=== PATIENT | female | born 2000 | race African-American/Black ===

== ENCOUNTER 2022-04-04 07:35 | Emergency (ER) | payer SELFPAY ==
--- NOTE | 2022-04-04 07:49 | EDPHYS ---
Physician Documentation [facility] Name: Anna Scott Age: 21 yrs Sex: Female : 2000 Arrival Date: 04/04/2022 Time: 07:38 Bed 14 Private MD: ED Physician Gino Romero HPI: 04/04 07:48 This 21 yrs old Black Female presents to ER via Unassigned with complaints of Ear Pain. kb 07:48 The patient presents with pain, moderate. The complaints affect the right ear. Onset: kb The symptoms/episode began/occurred last night. Modifying factors: The symptoms are alleviated by nothing, the symptoms are aggravated by nothing. Associated signs and symptoms: The patient has no apparent associated signs or symptoms. Severity of symptoms: At their worst the symptoms were moderate in the emergency department the symptoms are unchanged. The patient has not experienced similar symptoms in the past. The patient has not recently seen a physician. Historical: - Allergies: 07:49 No Known Allergies; ss - Home Meds: 07:49 metformin 750 mg Oral Tb24 1 tab once daily [Active]; ss - PMHx: 07:49 Diabetes mellitus; ss - PSHx: 07:49 None; ss - Immunization history:: Adult Immunizations up to date. - Social history:: Smoking status: Patient denies any tobacco usage or history of. ROS: 07:47 Constitutional: Negative for fever, chills, and weight loss. kb 07:47 ENT: Positive for ear pain. 07:47 All other systems are negative. Exam: 07:47 Constitutional: This is a well developed, well nourished patient who is awake, alert, kb and in no acute distress. Head/Face: Normocephalic, atraumatic. Cardiovascular: Regular rate and rhythm with a normal S1 and S2. No gallops, murmurs, or rubs. No pulse deficits. Respiratory: Respirations even and unlabored. No increased work of breathing. Talking in full sentences Skin: Warm, dry with normal turgor. Normal color. MS/ Extremity: Pulses equal, no cyanosis. Neurovascular intact. Full, normal range of motion. Neuro: Awake and alert, GCS 15, oriented to person, place, time, and situation. Moves all extremities. Normal gait. Psych: Awake, alert, with orientation to person, place and time. Behavior, mood, and affect are within normal limits. 07:47 ENT: External ear(s): are unremarkable, Ear canal(s): are normal, TM's: bulging, on the right, erythema, that is marked, on the right. Vital Signs: 07:47 BP 138 / 100; Pulse 84; Resp 16; Temp 97.1(A); Pulse Ox 100% on R/A; Weight 83.01 kg; ss Pain 8/10; MDM: 07:44 Patient medically screened. kb 07:47 Data reviewed: vital signs, nurses notes. Data interpreted: Pulse oximetry: on room air kb is 100 %. Interpretation: normal. Counseling: I had a detailed discussion with the patient and/or guardian regarding: the historical points, exam findings, and any diagnostic results supporting the discharge/admit diagnosis, the need for outpatient follow up, a family practitioner, to return to the emergency department if symptoms worsen or persist or if there are any questions or concerns that arise at home. Administered Medications: 08:02 Drug: Rocephin (cefTRIAXone) 1 grams Route: IM; Site: right gluteus; vg1 08:13 Follow up: Response: No adverse reaction vg1 Disposition: 15:15 Co-signature as Attending Physician, Gino SILVER was immediately available on-site ms3 in the Emergency Department for consultation in the care of the patient. Disposition Summary: 04/04/22 07:48 Discharge Ordered Location: Home kb Condition: Stable kb Diagnosis - Otitis media, unspecified, right ear kb Followup: kb - With: Emergency Department - When: As needed - Reason: Worsening of condition Followup: kb - With: Private Physician - When: 2 - 3 days - Reason: Recheck today's complaints, Continuance of care, Re-evaluation by your physician Discharge Instructions: - Discharge Summary Sheet kb - Otitis Media, Adult, [id number] kb Forms: - Medication Reconciliation Form kb - Thank You Letter kb - Antibiotic Education kb - Prescription Opioid Use kb Prescriptions: - Amoxicillin 875 mg Oral Tablet - take 1 tablet by ORAL route every 12 hours for 10 days; 20 tablet; Refills: 0, kb Product Selection Permitted Signatures: Anastasiya Lobato FNP-C FNP-Ckb Smirch, Shelby, RN RN Mery Luna RN RN vg1 Romero, Gino, DO DO ms3
[2022-04-04] MEDS ORDERED: CEFTRIAXONE 1000 MG/VIAL ONE (07:53)
[2022-04-04] MEDS ORDERED: LIDOCAINE 1% MPF 2 ML AMPULE ONE (07:53)
--- NOTE | 2022-04-04 08:14 | ER ---
Nurse's Notes [facility] Name: Anna Scott Age: 21 yrs Sex: Female : 2000 Arrival Date: 04/04/2022 Time: 07:38 Bed 14 Private MD: Diagnosis: Otitis media, unspecified, right ear Presentation: 04/04 07:47 Chief complaint: Patient states: R ear pain that began last night. Denies fever. ss Coronavirus screen: Client denies travel out of the [place] in the last 14 days. Ebola Screen: Patient denies exposure to infectious person. Patient denies travel to an Ebola-affected area in the 21 days before illness onset. Initial Sepsis Screen: Does the patient meet any 2 criteria? No. Patient's initial sepsis screen is negative. Does the patient have a suspected source of infection? No. Patient's initial sepsis screen is negative. Risk Assessment: Do you want to hurt yourself or someone else? Patient reports no desire to harm self or others. Onset of symptoms was April 03, 2022. 07:47 Method Of Arrival: Ambulatory 07:47 Acuity: KATHLEEN 4 ss Historical: - Allergies: 07:49 No Known Allergies; ss - Home Meds: 07:49 metformin 750 mg Oral Tb24 1 tab once daily [Active]; ss - PMHx: 07:49 Diabetes mellitus; ss - PSHx: 07:49 None; ss - Immunization history:: Adult Immunizations up to date. - Social history:: Smoking status: Patient denies any tobacco usage or history of. Screenin:04 Abuse screen: Denies threats or abuse. Nutritional screening: No deficits noted. vg1 Tuberculosis screening: No symptoms or risk factors identified. Fall Risk None identified. Assessment: 07:48 General: Appears in no apparent distress. uncomfortable, Behavior is calm, cooperative. vg1 Pain: Complains of pain in right ear Pain currently is 8 out of 10 on a pain scale. Pain began 1 day ago. Neuro: Level of Consciousness is awake, alert, obeys commands, Oriented to person, place, time, situation. Respiratory: Airway is patent Respiratory effort is even, unlabored. GI: No signs and/or symptoms were reported involving the gastrointestinal system. EENT: Tympanic membrane reddened on right ear. Vital Signs: 07:47 BP 138 / 100; Pulse 84; Resp 16; Temp 97.1(A); Pulse Ox 100% on R/A; Weight 83.01 kg; ss Pain 8/10; ED Course: 07:38 Patient arrived in ED. mr 07:43 Anastasiya Lobato FNP-C is [facility]. kb 07:43 Gino Romero DO is Attending Physician. kb 07:48 Mery Nelson, RN is Primary Nurse. vg1 07:49 Triage completed. ss 07:49 Arm band placed on right wrist. ss 08:04 Patient has correct armband on for positive identification. Bed in low position. Call vg1 light in reach. Side rails up X 1. 08:04 No provider procedures requiring assistance completed. Patient did not have IV access vg1 during this emergency room visit. Administered Medications: 08:02 Drug: Rocephin (cefTRIAXone) 1 grams Route: IM; Site: right gluteus; vg1 08:13 Follow up: Response: No adverse reaction vg1 Medication: 08:04 VIS not applicable for this client. vg1 Outcome: 07:48 Discharge ordered by MD. kb 08:04 Discharged to home ambulatory. vg1 08:04 Condition: good 08:04 Discharge instructions given to patient, Instructed on discharge instructions, follow up and referral plans. medication usage, Demonstrated understanding of instructions, follow-up care, medications, Prescriptions given X 1. 08:13 Patient left the ED. vg1 Signatures: Anastasiya Lobato FNP-C FNP-Vincent Tasneem Haines Betty Singh, JAMES RN Mery Luna, RN RN vg1
[2022-04-04 08:24] VITALS: BP 138/100; TEMP 97.1; O2SAT 100
== END 2022-04-04 08:13 | disposition home or self-care (01) ==
LOC: ER 07:35
DX: H66.91 Otitis media, unspecified, right ear (principal); E11.9 Type 2 diabetes mellitus without complications
CPT/HCPCS: 96372; 99283

== ENCOUNTER 2022-11-03 15:00 | Emergency (ER) | payer SELFPAY ==
--- OUTSIDE RECORDS SUMMARY | 2022-11-03 15:04 | XMS REPORT | Continuity of Care Document ---
:2000 Author Organization [facility] t Address [address] [place] [address] Care Team Providers Name Role Phone VANDANA BECERRA Primary Care Physician Unavailable Jake JAMA Attending Clinician Unavailable Jake Lombardi Attending Clinician VANDANA BECERRA Attending Clinician Unavailable LEOLA SALINAS Attending Clinician Unavailable David Gunterya S Attending Clinician Ced Álvarez MD Attending Clinician CED ÁLVAREZ Attending Clinician Unavailable BRENDA GERARDO Attending Clinician Unavailable Vandana Becerra MD Attending Clinician CHASE VELASCO Attending Clinician Unavailable Lab, [facility] Attending Clinician Unavailable JONA PHAN Attending Clinician Unavailable Jona Delgado Attending Clinician Valarie Koo MD Attending Clinician VALARIE KOO Attending Clinician Unavailable Doctor Unassigned, [place] Attending Clinician Unavailable PERRY CRENSHAW Attending Clinician Unavailable Rosemary Butler Attending Clinician WINSTON FERRER Attending Clinician Unavailable Nurse, [facility] Urgent Attending Clinician Unavailable Winston Ferrer MD Attending Clinician Perry Carter Attending Clinician Tristin Campos DO Attending Clinician LUAN ARMSTRONG Attending Clinician Unavailable Luan Armstrong APN Attending Clinician MEHRAN FLORES Attending Clinician Unavailable Jordan MULTANIP, Kate Cid Attending Clinician AMALIA CHAVEZ Attending Clinician Unavailable ALEJANDRO MCCALL Attending Clinician Unavailable Theodore WALLER, Jennifer Attending Clinician JENNIFER JAIMES Attending Clinician Unavailable Sunil RAMIREZ, Rukhsana Attending Clinician Unavailable Jazzy GIBBONS, Ange Juarez Attending Clinician ROSEANNE RODRIGUEZ Attending Clinician Unavailable Eliezer RAMIREZ, Betty Rubio Attending Clinician Unavailable Nurse, Pcp [facility] Attending Clinician Unavailable Leonid GIBBONS, Joe Attending Clinician JOE CISNEROS Attending Clinician Unavailable JAMEY RIVERA Attending Clinician Unavailable Kellie Vo RN Attending Clinician Unavailable Pcp, Patient Does Not Have A Attending Clinician [phone] Lachelle Guadarrama PA-C Attending Clinician LACHELLE GUADARRAMA Attending Clinician Unavailable Jake JAMA Admitting Clinician Unavailable JAKE HANSON Admitting Clinician Unavailable JONA PHAN Admitting Clinician Unavailable VALARIE KOO Admitting Clinician Unavailable LUAN ARMSTRONG Admitting Clinician Unavailable Payers Payer Name Policy Type Policy Number Effective Date Expiration Date S ource MEDICAID PENDING PENDING 2020 00:00:00 [facility] [id number] 2021 00:00:00 Problems Condition Condition Condition Status Onset Resolution Last Treating Co mments Source Name Details Category Date Date Treatment Clinician Date Rubella Rubella Disease Active Univers non-immune non-immune 02-06 it y of status, status, 00:00: [place] antepartum antepartum 00 Me dical Branch Maternal Maternal Disease Active Unive rs varicella, varicella, 02-06 it y of [place]immune [place] History of History of Disease Active U nivers gestationa gestationa 8-23 it y of l diabetes l diabetes [place] in prior 00 Medica l , , Br anch currently currently in first in first trimester trimester Family Family Disease Active Univers history of history of 01-01 it y of diabetes diabetes 00:00: [place] mellitus mellitus 00 Medica l Branch History of History of Disease Active U nivers gestationa gestationa 8 it y of l l 00:00: [place] hypertensi hypertensi 00 Me dical on on Branch Hearing Hearing Disease Active Overview: Univ ers loss loss 4-30 Formattin ity of 00:00: g of this [place] 00 note Medical might be Branch different from the original. ICD10 Diagnosis Term [employer] Utility Allergies, Adverse Reactions, Alerts Allergy Allergy Status Severity Reaction(s) Onset Inactive Treating Comm ents Source Name Type Date Date Clinician NO KNOWN Drug Active Univers ALLERGIE Class ity of S [facility] Social History Social Habit Start Date Stop Date Quantity Comments Source History SDOH University o f Alcohol Frequency [place] M edical [facility] History SDOH University o f Alcohol Std [place] [facility] Drinks Branch History SDFL University o f Alcohol Binge [place] [facility] Branch Exposure to 2022-01-15 2022-01-25 Unable to assess Univers ity of SARS-CoV-2 00:00:00 08:49:00 [facility] (event) Branch Alcohol intake 2022-01-25 2022-01-25 Current drinker Unive rsity of 00:00:00 00:00:00 of alcohol [place] [facility] (finding) [place] Alcohol Comment 2020-08-01 2020-08-01 socially Universit y of 00:00:00 00:00:00 [facility] Tobacco use and 2017-01-17 2017-01-17 Smokeless tobacco Un iversity of exposure 00:00:00 00:00:00 non-user [facility] Sex Assigned At [birth year] Universit y of 00:00:00 00:00:00 [facility] Smoking Status Start Date Stop Date Source Never smoked tobacco [facility] Medications Ordered Filled Start Stop Current Ordering Indication Dosage Frequency Signature Comments Components Source Medication Medication Date Date Medication? Clinician (SIG) Name Name ibuprofen 600mg 600 mg, Uni vers (IBU) 9-16 09-16 Oral, ity of tablet 600 14:45: 14:52 ONCE, 1 Da as mg 00 :00 dose, On Medical Fri Branch 01/25/22 at 0945, ROSHAN maalox:diph 2021- No 15mL 15 mL, Uni vers enhydrAMINE 5 05-07 Oral, ity of :lidocaine 03:45: 03:19 ONCE, 1 Da as 2 % viscous 00 :00 dose, On Medi ion 1:1:1 09/14/21 Branch ([facility] at 2245, [facility] Routine oral suspension 15 mL pantoprazol 0 Yes [id number] 40mg Take 1 Univers e 5-06 tablet by ity of (PROTONIX) 00:00: mouth [place] 40 mg EC 00 daily. Medical tablet Branch dicyclomine 0 Yes [id number] 20mg Take 1 Univers 20 mg 5-06 tablet by ity of tablet 00:00: mouth [place] 00 every 6 Medical (six) Branch hours as needed for Abdominal pain. ondansetron 0 Yes [id number] 4mg Take 1 Univers (ZOFRAN) 4 5-06 tablet by ity of mg tablet 00:00: mouth [place] 00 every 8 Medical (eight) Branch hours as needed for Nausea and Vomiting (N/V). pantoprazol 0 Yes [id number] 40mg Take 1 Univers e 5-06 tablet by ity of (PROTONIX) 00:00: mouth [place] 40 mg EC 00 daily. Medical tablet Branch dicyclomine 0 Yes [id number] 20mg Take 1 Univers 20 mg 5-06 tablet by ity of tablet 00:00: mouth [place] 00 every 6 Medical (six) Branch hours as needed for Abdominal pain. ondansetron 2021-0 Yes [id number] 4mg Take 1 Univers (ZOFRAN) 4 5-06 tablet by ity of mg tablet 00:00: mouth [place] 00 every 8 Medical (eight) Branch hours as needed for Nausea and Vomiting (N/V). clindamycin 0 2021- No [id number] 300mg Take 1 Univers 300 mg 4-21 -29 capsule by ity of capsule 00:00: 04:59 mouth 2 [place] 00 :00 (two) Medical times Branch daily for 7 days. SITagliptin 2021-0 Yes [id number] 100mg Take 1 Univers 100 mg 4-13 tablet by ity of tablet 00:00: mouth [place] 00 daily. Medical Branch SITagliptin 2021-0 Yes [id number] 100mg Take 1 Univers 100 mg 4-13 tablet by ity of tablet 00:00: mouth [place] 00 daily. Medical Branch SITagliptin 2021-0 Yes [id number] 100mg Take 1 Univers 100 mg 4-13 tablet by ity of tablet 00:00: mouth [place] 00 daily. Medical Branch metformin 2021-0 Yes [id number] 2000mg Take 4 Univers ER 500 mg 4-06 tablets by ity of 24 hr 00:00: mouth [place] tablet 00 daily with Medical breakfast. Branch metformin 2021-0 Yes [id number] 2000mg Take 4 Univers ER 500 mg 4-06 tablets by ity of 24 hr 00:00: mouth [place] tablet 00 daily with Medical breakfast. Branch metformin 2021- Yes [id number] 2000mg Take 4 Univers ER 500 mg 4-06 tablets by ity of 24 hr 00:00: mouth [place] tablet 00 daily with Medical breakfast. Branch Immunizations Ordered Filled Immunization Date Status Comments [facility] e Immunization Name Name HPV9 2018-11-30 Completed University of 00:00:00 [facility] HPV9 2018-11-30 Completed University of 00:00:00 [facility] HPV9 2018-11-30 Completed University of 00:00:00 [facility] HPV9 2018-08-21 Completed University of 00:00:00 [facility] HPV9 2018-08-21 Completed University of 00:00:00 [facility] HPV9 2018-08-21 Completed University of 00:00:00 [facility] HPV9 2017-09-05 Completed University of 00:00:00 [facility] HPV9 2017-09-05 Completed University of 00:00:00 [facility] HPV9 2017-09-05 Completed University of 00:00:00 [facility] TDAP 2017-07-02 Completed University of 00:00:00 [facility] TDAP 2017-07-02 Completed University of 00:00:00 [facility] TDAP 2017-07-02 Completed University of 00:00:00 [facility] Influenza Virus 2013-02-08 Completed Universit y of Vaccine Nasal 00:00:00 [facility] Influenza Virus 2013-02-08 Completed Universit y of Vaccine Nasal 00:00:00 [facility] [place] Influenza Virus 2013-02-08 Completed Universit y of Vaccine Nasal 00:00:00 [facility] HIB 4 Dose Schedule 1999-10-15 Completed Unive rsity of 00:00:00 [facility] HIB 4 Dose Schedule 1999-10-15 Completed Unive rsity of 00:00:00 [facility] MMR 1999-08-10 Completed University of 00:00:00 [facility] Varicella 1999-08-10 Completed University of (varivax)(chicken 00:00:00 [place] M edical pox) Branch DTAP 1999-08-10 Completed University of 00:00:00 [facility] HIB 4 Dose Schedule 1999-08-10 Completed Unive rsity of 00:00:00 [facility] Polio (IPV/OPV) 1999-08-10 Completed Universit y of 00:00:00 [facility] MMR 1999-08-10 Completed University of 00:00:00 [facility] Varicella 1999-08-10 Completed University of (varivax)(chicken 00:00:00 [place] [facility]ical pox) Branch DTAP 1999-08-10 Completed University of 00:00:00 [facility] HIB 4 Dose Schedule 1999-08-10 Completed Unive rsity of 00:00:00 [facility] Polio (IPV/OPV) 1999-08-10 Completed Universit y of 00:00:00 [facility] Hep B, Adol or Pedi 1999-05-30 Completed Unive rsity of Dosage 00:00:00 [facility] DTAP 1999-05-30 Completed University of 00:00:00 [facility] HIB 4 Dose Schedule 1999-05-30 Completed Unive rsity of 00:00:00 [facility] Polio (IPV/OPV) 1999-05-30 Completed Universit y of 00:00:00 [facility] Hep B, Adol or Pedi 1999-05-30 Completed Unive rsity of Dosage 00:00:00 [facility] DTAP 1999-05-30 Completed University of 00:00:00 [facility] HIB 4 Dose Schedule 1999-05-30 Completed Unive rsity of 00:00:00 [facility] Polio (IPV/OPV) 1999-05-30 Completed Universit y of 00:00:00 [facility] DTAP 1998 Completed University of 00:00:00 [place] [facility] HIB 4 Dose Schedule 1998 Completed Unive rsity of 00:00:00 [place] [facility] Polio (IPV/OPV) 1998 Completed Universit y of 00:00:00 [place] [facility] DTAP 1998 Completed University of 00:00:00 [place] [facility] HIB 4 Dose Schedule 1998 Completed Unive rsity of 00:00:00 [place] [facility] Polio (IPV/OPV) 1998 Completed Universit y of 00:00:00 [place] [facility] DTAP 1998 Completed University of 00:00:00 [facility] Branch HIB 4 Dose Schedule 1998 Completed Unive rsity of 00:00:00 [facility] Polio (IPV/OPV) 1998 Completed Universit y of 00:00:00 [facility] Hep B, Adol or Pedi 1998 Completed Unive rsity of Dosage 00:00:00 [facility] DTAP 1998 Completed University of 00:00:00 [place] [facility] HIB 4 Dose Schedule 1998 Completed Unive rsity of 00:00:00 [facility] Polio (IPV/OPV) 1998 Completed Universit y of 00:00:00 [place] [facility] Hep B, Adol or Pedi 1998 Completed Unive rsity of Dosage 00:00:00 [facility] DTAP 1998 Completed University of 00:00:00 [facility] HIB 4 Dose Schedule 1998 Completed Unive rsity of 00:00:00 [place] [facility] Polio (IPV/OPV) 1998 Completed Universit y of 00:00:00 [place] [facility] Hep B, Adol or Pedi 1998 Completed Unive rsity of Dosage 00:00:00 [place] [facility] Hep B, Adol or Pedi 1998 Completed Unive rsity of Dosage 00:00:00 [place] [facility] Hep B, Adol or Pedi 1998 Completed Unive rsity of Dosage 00:00:00 [place] [facility] Hep B, Adol or Pedi 1998 Completed Unive rsity of Dosage 00:00:00 [place] [facility] Hep B, Adol or Pedi 1998 Completed Unive rsity of Dosage 00:00:00 [facility] Vital Signs Vital Name Observation Time Observation Value Comments Source Systolic blood 2022-01-25 13:50:07 135 mm[Hg] Univer sity of pressure [facility] Diastolic blood 2022-01-25 13:50:07 68 mm[Hg] Unive rsity of pressure [facility] Heart rate 2022-01-25 13:50:07 98 /min Universi ty [facility] Body temperature 2022-01-25 13:50:07 36.11 Aparna [facility] ersity of [facility] Respiratory rate 2022-01-25 13:50:07 22 /min Univ ersity of [facility] Body height 2022-01-25 13:38:00 154.9 cm Universi ty of [facility] Body weight 2022-01-25 13:38:00 88.86 kg Universi ty of [facility] BMI 2022-01-25 13:38:00 37.01 kg/m2 Universi ty [facility] Oxygen saturation in 2022-01-25 13:38:00 100 /min University of Arterial blood by [facility] Pulse oximetry Branch Systolic blood 2021-09-15 05:11:00 112 mm[Hg] Univer sity of [facility] Diastolic blood 2021-09-15 05:11:00 85 mm[Hg] Unive rsity of pressure [facility] Heart rate 2021-09-15 05:11:00 85 /min Universi ty [facility] Respiratory rate 2021-09-15 05:11:00 16 /min Univ ersity [facility] Oxygen saturation in 2021-09-15 05:11:00 95 /min University of Arterial blood by [facility] Pulse oximetry Branch Body temperature 2021-09-15 02:24:32 36.78 Aparna [facility] ersity of [facility] Body height 2021-09-15 01:43:00 154.9 cm Universi ty of [place] [facility] [place] Body weight 2021-09-15 01:43:00 88.905 kg Universi ty of [place] [facility] [place] BMI 2021-09-15 01:43:00 37.03 kg/m2 Universi ty of [facility] Procedures Procedure Date / Time Performing Clinician Source Performed XR HAND 3+ VW LEFT 2022-01-25 14:13:53 Jake Jama [facility] CONSENT/REFUSAL FOR 2022-01-25 13:37:30 [facility] XR CHEST 1 VW 2021-09-15 02:56:12 Jake Hanson [facility] o [facility] LIPASE 2021-09-15 02:24:00 Ced Álvarez [facility] TROPONIN I 2021-09-15 02:24:00 Ced Álvarez [facility] COMP. METABOLIC PANEL 2021-09-15 02:24:00 Ced Álvarez [facility] ([id number]) [facility] CBC WITH DIFF 2021-09-15 02:24:00 Ced Álvarez [facility] PROTHROMBIN TIME / INR 2021-09-15 02:24:00 Ced Álvarez [facility] ACTIVATED PARTIAL 2021-09-15 02:24:00 Ced Álvarez [facility] THRMPLAS [facility] NOTICE OF PRIVACY 2021-09-15 01:27:45 Doctor Unassigned, No [facility] PRACTICES Name [facility] CONSENT/REFUSAL FOR 2021-09-15 01:25:09 [facility] Name [facility] Encounters Start End Encounter Admission Attending Care Care Encounter Source Date/Time Date/Time Type Type Clinicians Facility Department ID 2021-03-[address] [facility] [id number] Univers 08:52:12 ity of [facility] 2021-03-[address] [facility] [id number] Univers 22:13:37 ity of [facility] 2021-03-[address] [facility] [id number] Univers 20:27:27 ity [facility] 2022-01-25 2022-01-25 Emergency X Jake JAMA [facility] ERT [id number] Univers 08:40:00 10:02:00 ity [facility] 2022-01-25 2022-01-25 Emergency Jake Jama [facility] [id number] Univers 08:40:00 10:02:00 [facility] [id number] i ty of [place] [id number] [facility] [phone] [place] [address] Branch 2021-12-12 2021-12-12 Outpatient R [facility] [id number] Univers 10:00:00 10:00:00 VANDANA [facility] 2021-12-04 2021-12-04 Outpatient R [facility] [id number] Univers 10:30:00 10:30:00 LEOLA [facility] 2021-09-14 2021-09-15 Emergency Jake Hanson [facility] [id number] Univers 20:45:00 00:18:00 Ced ÁlvarezNIKO [id number] ity [facility] [id number] [facility] [id number] [address] 2021-09-14 2021-09-15 Emergency X AVRIL [facility] ERT [id number] Univers 20:45:00 00:18:00 CED [facility] 2021-09-05 2021-09-05 Outpatient R [facility] [id number] Univers 13:30:00 13:30:00 BRENDA ronny [facility] 2021-09-05 2021-09-05 Outpatient R [facility] [id number] Univers 13:30:00 13:30:00 BRENDA [facility] 2021-08-30 2021-08-30 [facility] [id number] Univers 00:00:00 00:00:00 Secure [facility] [id number] ity [facility] [id number] [facility] [phone] [facility] PRIMARY & 365 Branch SPECIALTY CARE 2021-08-22 2021-08-22 Outpatient [facility] [id number] Univers 11:20:00 11:20:00 CHASE [facility] 2021-08-22 2021-08-[address] [facility] [id number] Univers 11:20:00 11:20:00 [facility] 2021-08-15 2021-08-15 News Editor Lab, [facility] [id number] Univers 15:15:00 15:30:00 Visit Hernan [place] [id number] [facility] [id number] [facility] [phone] [facility] PRIMARY & 357 Branch SPECIALTY CARE 2021-08-15 2021-08-[address] [facility] [id number] Univers 13:40:00 15:03:09 [facility] 2021-08-15 2021-08-15 Office Hernan [facility] [id number] Univers 13:40:00 15:03:09 Visit [place] [id number] [facility] [id number] [facility] [id number] [facility] PRIMARY & 365 Branch SPECIALTY CARE 2021-08-15 2021-08-[address] [facility] [id number] Univers 13:40:00 15:03:09 [facility] 2021-08-15 2021-08-[address] [facility] [id number] Univers 13:40:00 15:03:09 [facility] 2021-08-15 2021-08-[address] [facility] [id number] Univers 11:00:00 11:00:00 [facility] 2021-08-01 2021-08-[address] [facility] [id number] Univers 09:20:00 09:20:00 [facility] 2021-08-01 2021-08-[address] [facility] [id number] Univers 09:20:00 09:20:00 VANDANA jefferson [facility] 2021-07-15 2021-07-15 Refethan Hernan [facility] [id number] Univers 00:00:00 00:00:00 Vandana HEALTH [id number] it y of [place] [id number] [facility] [place] [phone] [facility] PRIMARY & 365 Branch SPECIALTY CARE 2021-07-08 2021-07-08 [facility] [id number] Univers 00:00:00 00:00:00 Vnadana HEALTH [id number] it y of [place] [id number] [facility] [phone] [facility] PRIMARY & 365 Branch SPECIALTY CARE 2021 2021 Emergency X JONA PHAN [facility] ERT [id number] Univers 12:43:00 18:40:00 ity of [facility] 2021 2021 Emergency Jona Phan [facility] [id number] Univers 12:43:00 18:40:00 T HEALTH [id number] it y of [facility] [id number] [facility] [id number] [address] ([facility]) 2021-06-23 2021-06-23 Patient Hernan [facility] [id number] Univers 00:00:00 00:00:00 Secure Msg Vandana HEALTH [id number] ity of [place] [id number] [facility] [place] [phone] [facility] PRIMARY & [facility] Branch SPECIALTY CARE 2021-06-21 2021-06-[address] [facility] [id number] Univers 13:00:00 13:00:00 BRENDA jefferson [facility] 2021-06-21 2021-06-[address] [facility] [id number] Univers 13:00:00 13:00:00 BRENDA jefferson [facility] 2021-06-13 2021-06-13 [facility] JOSE [id number] Univers 08:31:00 23:59:00 Encounter Valarie Chau [id number] ity of [place] [id number] Da as [id number] [address] 2021-06-13 2021-06-13 Outpatient Ravinder KOO [facility] ACO [id number] Univers 00:00:00 23:59:00 VALAREI ity [facility] 2021-06-13 2021-06-13 News Editor Lab, [facility] [id number] Univers 15:30:00 15:45:00 Visit Hernan [facility] [id number] ity of [place] [id number] [facility] [id number] [facility] PRIMARY & 357 Branch SPECIALTY CARE 2021-06-13 2021-06-13 Office Hernan [facility] [id number] Univers 14:40:00 15:00:00 Visit [facility] [id number] it y of [place] [id number] [place] [address] [id number] [facility] PRIMARY & 365 Branch SPECIALTY CARE 2021-06-13 2021-06-13 Outpatient Ravinder BECERRA [facility] AC [id number] Univers 14:40:00 14:40:00 [facility] 2021-06-13 2021-06-13 Outpatient Ravinder BECERRA [facility] ACO [id number] Univers 14:40:00 14:40:00 [facility] 2021-06-13 2021-06-13 [facility] LILLIAN KooMahendra [id number] Univers 08:28:00 08:30:00 Encounter Valarie Chau [id number] ity of [facility] [id number] Da as [id number] [address] 2021-06-13 2021-06-13 Outpatient Ravinder KOO [facility] ACO [id number] Univers 00:00:00 08:30:00 VALARIE jefferson of [facility] 2021-06-13 2021-06-13 Orders Doctor MAUREEN [id number] Univers 00:00:00 00:00:00 Only Unassigned, MIRANDA [id number] ity of [facility] [id number] Da as [phone] [facility] [address] 2021-04-10 2021-04-10 [facility] [id number] Univers 10:15:00 10:15:00 PERRY jefferson [facility] 2020-11-25 2020-11-25 Emergency Caro, TRAUMA [id number] Univers 14:06:00 15:04:00 Rosemary WILLIS 350.1.13.10 [place] [phone] [facility] [address] 2020-08-19 2020-08-[address] [facility] [id number] Univers 12:45:00 12:45:00 WINSTON jefferson [facility] 2020-08-19 2020-08-19 Laboratory Nurse, Gal Adult Urgent [facility] 1.2.840.114 [id number] Univers 12:29:43 12:44:43 Only Winston Ferrer [facility] 350.1.13.10 ity of Pediatric 4.2.7.2.686 [facility] [phone] [facility] [address] 2020-08-15 2020-08-15 Outpatient [facility] [id number] Univers 09:15:00 09:15:00 PERRY jefferson of [facility] 2020-08-03 2020-08-03 Thiago Crenshaw [facility] 1.2.840.114 [id number] Univers 00:00:00 00:00:00 Management Perry [employer] SU[employer] ASSOCIATE 350.1.13.10 ity of REGIONAL 4.2.7.2.686 [place] as MATERNAL [phone] Med ical & CHILD [address] [place] [address] [facility] 2020-08-02 2020-08-02 Luis Crenshaw [facility] 1.2.840.114 [id number] Univers 00:00:00 00:00:00 Perry [employer]SP[employer] SUPPORT ASSOCIATE 350.1.13.10 it y of REGIONAL 4.2.7.2.686 [place] as MATERNAL [phone] [facility] & [address] 2020-08-01 2020-08-01 [facility] 1.2.840.114 [id number] Univers 14:56:05 16:42:23 Visit Perry [employer]SP[employer] SUPPORT ASSOCIATE 350.1.13.10 it y of REGIONAL 4.2.7.2.686 [place] as MATERNAL [phone] [facility] & [address] 2020-08-01 2020-08-01 Outpatient [facility] [id number] Univers 15:30:00 15:30:00 PERRY [facility] 2020-08-01 2020-08-01 [facility] 1.2.840.114 [id number] Univers 00:00:00 00:00:00 Outreach [facility] 350.1.13.10 i ty [facility] [place] [phone] [facility] [address] 2020-07-18 2020-07-19 Emergency X [facility]ULTMAN [facility] [id number] Univers 22:51:00 01:31:00 LUAN ity [facility] 2020-07-18 2020-07-19 Emergency Armstrong, TRAUMA 1.2.256.332 [id number] Univers 22:51:00 01:31:00 Luan [facility] 350.1.13.10 [place] [id number] [address] 2020-06-20 2020-06-[address] [facility] [id number] Univers 09:20:00 09:20:00 MEHRAN ity [facility] 2020-06-16 2020-06-17 Emergency Sadiaoman, TRAUMA 1.2.840.114 [id number] Univers 22:13:00 00:00:00 Kate Cid KARNACK 350.1.13.10 [place] [phone] [facility] [address] 2020-06-08 2020-06-08 Emergency Armstrong, TRAUMA 1.2.450.658 [id number] Univers 21:08:00 21:48:00 Luan [facility] 350.1.13.10 [place] [phone] [place] [address] 2020-05-26 2020-05-26 Outpatient P AMALIA CHAVEZ [facility] [id number] Univers 12:45:00 12:45:00 ity [facility] 2020-05-24 2020-05-24 Outpatient R [facility] [id number] Univers 14:30:00 14:30:00 ALEJANDRO [facility] 2020-05-24 2020-05-24 Telephone MARCIAL Jaimes 1.2.840.114 [id number] Univers 00:00:00 00:00:00 [facility] 350.1.13.10 i ty [place] [phone] [address] 2020-05-09 2020-05-[address] [facility] [id number] Univers 13:00:00 13:00:00 [facility] 2020-03-31 2020-03-31 Office MARCIAL Jaimes 1.2.315.966 [id number] Univers 12:54:29 14:10:03 Visit [facility] 350.1.13.10 i ty [place] [id number] [address] 2020-03-31 2020-03-31 [facility]patient [facility] [id number] Univers 13:00:00 13:00:00 [facility] 2020-03-31 2020-03-31 Nurse MAUREEN Barber 1.2.840.114 [id number] Univers 00:00:00 00:00:00 Triage Rukhsana JEAN 350.1.13.10 [facility] 4.2.7.2.686 [place] [phone] [address] 2020-03-31 2020-03-31 Orders Doctor MAUREEN 1.2.840.114 [id number] Univers 00:00:00 00:00:00 Only Unassigned, MIRANDA 350.1.13.10 ity of [place] [facility] 4.2.7.2.686 Da as [id number] [facility] [address] 2019-12-01 2019-12-01 Outpatient [facility] [id number] Univers 13:45:00 13:45:00 [facility] ity [facility] 2019-11-26 2019-11-[address] [facility] [id number] Univers 08:30:00 08:30:00 ity [facility] 2019-11-23 2019-11-[address] [facility] [id number] Univers 10:30:00 10:30:00 [facility] 2019-11-16 2019-11-16 Office MARCIAL Jaimes [id number] Univers 09:08:08 10:29:20 Visit [facility] 350.1.13.10 i ty of [facility] [place] [id number] [facility] [address] 2019-11-16 2019-11-16 Outpatient [facility] [id number] Univers 09:00:00 09:00:00 [facility] 2019-11-16 2019-11-16 Orders Doctor MAUREEN 1.2.840.114 [id number] Univers 00:00:00 00:00:00 Only Unassigned, MIRANDA 350.1.13.10 ity of [facility] 4.2.7.2.686 Da as [id number] [address] 2019-11-15 2019-11-15 Outpatient [facility] [id number] Univers 08:30:00 08:30:00 [facility] 2019-09-18 2019-09-18 Telephone [facility] 1.2.009.134 [id number] Univers 00:00:00 00:00:00 Ange PRIMARY 350.1.13.10 it y of [facility] 4.2.7.2.686 [place] as PAVILLION [phone] Me dical [address] 2019-09-11 2019-09-11 Outpatient R ROSEANNE RODRIGUEZ [facility] [id number] Univers 18:20:00 18:20:00 ity [facility] 2019-09-11 2019-09-11 Nurse MAUREEN Martins 1.2.840.114 [id number] Univers 00:00:00 00:00:00 Triage Betty Rubio MIRANDA 350.1.13.10 [facility] 4.2.7.2.686 [place] as [phone] [facility] [address] 2019-09-08 2019-09-[address] [facility] [id number] Univers 13:25:00 13:25:00 ity [facility] 2019-09-07 2019-09-08 Nurse Nurse, Pcp [facility] 1.2.840.114 [id number] Univers 13:03:39 10:17:21 Visit Joe Cisneros PRIMARY 350.1.13.10 ity of [facility] [place] [id number] Co dical [address] 2019-09-07 2019-09-[address] [facility] [id number] Univers 13:00:00 13:00:00 JOE ity [facility] 2019-09-07 2019-09-07 [facility] 1.2.840.114 [id number] Univers 00:00:00 00:00:00 Management Ange PRIMARY 350.1.13.10 ity [facility] 4.2.7.2.686 [place] as PAVILLION [id number] Co dical [address] 2019-09-06 2019-09-06 Telephone MARCIAL Jaimes 1.2.840.114 [id number] Univers 00:00:00 00:00:00 [facility] 350.1.13.10 i ty of [facility] [place] [id number] [facility] [address] 2019-09-04 2019-09-[address] [facility] [id number] Univers 12:45:00 12:45:00 ity [facility] 2019-09-03 2019-09-[address] [facility] [id number] Univers 17:20:00 17:20:00 JAMEY ity [facility] 2019-08-22 2019-08-22 Nurse MAUREEN Vo 1.2.840.114 [id number] Univers 00:00:00 00:00:00 Triage Aneatrice MIRANDA 350.1.13.10 ity of HOSPITAL 4.2.7.2.686 [place] as [phone] [facility] [address] 2019-08-20 2019-08-20 Nurse MAUREEN Haney 1.2.840.114 [id number] Univers 00:00:00 00:00:00 Triage Patient MIRANDA 350.1.13.10 it y of [place] HOSP[place].2.[place] [phone] [facility] [address] 2019-08-10 2019-08-10 Telemedici MARCIAL Guadarrama 1.2.840.114 [id number] Univers 09:06:23 12:39:14 ne Visit [facility] 350.1.13.10 ity of CL[place] [id number] [facility] [address] 2019-08-10 2019-08-[address] [facility] [id number] Univers 10:30:00 10:30:00 LACHELLE ity [facility] 2019-08-08 2019-08-08 Telephone MARCIAL Jaimes 1.2.840.114 [id number] Univers 00:00:00 00:00:00 [facility] 350.1.13.10 i ty [place] [id number] [facility] [address] 2018-12-14 2018-12-14 Patient Doctor MAUREEN 1.2.840.114 [id number] Univers 00:00:00 00:00:00 Secure Msg Unassigned, MIRANDA 350.1.13.10 ity of [place] [facility] 4.2.7.2.686 Da as [phone] [facility] [address] 2018-12-09 2018-12-09 Office MARCIAL Jaimes 1.2.368.541 [id number] Univers 12:50:54 14:06:18 [facility] 350.1.13.10 i ty [place] [id number] [facility] [address] 2018-12-09 2018-12-09 Orders Doctor MAUREEN 1.2.840.114 [id number] Univers 00:00:00 00:00:00 Only Unassigned, MIRANDA 350.1.13.10 ity of [place] [facility] 4.2.7.2.686 Da as [phone] [facility] [address] 2018-12-04 2018-12-04 Patient Doctor MAUREEN 1.2.840.114 [id number] Univers 00:00:00 00:00:00 Secure Msg Unassigned, MIRANDA 350.1.13.10 ity of [place] [facility] 4.2.7.2.686 Da as [id number] [facility] [address] Results Test Description Test Time Test Comments Results Result Comments Source TROPONIN I 2021-09-15 03:39:58 Test Item Value Reference Range Interpretation Comme nts TROPONIN I (test code = 0.001 ng/mL See_Comment [Au tomated message] The 7505866536) system which ge nerated this result tra nsmitted reference range : <=0.034. The reference r nikkie was not used to int erpret this result as normal/abnormal . FRANCISCO (test code = FRANCISCO) Reference (Normal) Range (defined by the 99th percentile reference limit): <= 0.034 ng/mL Note: Cardiac troponin begins to rise 3-4 hours after the onset of ischemia. Repeat in 4-6 hours if the sample was drawn within 3-4 hours of the onset of the symptom and found normal. Diagnosis of myocardial injury is made with acute changes in cTn concentrations with at least one serial sample above the 99th percentile upper reference limit (URL), taken together with the patient's clinical presentation. Biotin has been reported to cause a negative bias, interpret results relative to patient's use of biotin. Lab Interpretation Normal (test code = 66180-6) [facility]. METABOLIC PANEL (10656)2021-09-15 03:28:25 Test Item Value Reference Range Interpretation Comments NA (test code = 135 mmol/L 135-145 6108505792) K (test code = 4.7 mmol/L 3.5-5.0 7449145546) CL (test code = 99 mmol/L 98-108 8197105754) CO2 TOTAL (test code = 24 mmol/L 23-31 0217990528) AGAP (test code = 2-16 9712881748) BUN (test code = 11 mg/dL 7-23 2473346333) GLUCOSE (test code = 403 mg/dL 70-110 H 2565947574) CREATININE (test code = 0.52 mg/dL 0.50-1.04 4346087911) TOTAL BILI (test code = 0.3 mg/dL 0.1-1.4 4048392581) CALCIUM (test code = 9.8 mg/dL 8.6-10.6 3225878507) T PROTEIN (test code = 7.5 g/dL 6.3-8.2 3195231891) ALBUMIN (test code = 4.4 g/dL 3.5-5.0 6775503943) ALK PHOS (test code = 85 U/L 34-122 8728440278) ALTv (test code = 31 U/L 5-35 1742-6) AST(SGOT) (test code = 24 U/L 13-40 2907979631) eGFR (test code = mL/min/1.73m2 7708197245) FRANCISCO (test code = FRANCISCO) Association of Glomerular Filtration Rate (GFR) and Staging of Kidney Disease* + --+ --+ ------+| GFR (mL/min/1.73 m2) ?| With Kidney Damage ?| ?Without Kidney Damage+ --------+ --------+ +| ?>90 ?| ?Stage one ?| ? Normal ?+ ---+ ---+ -------+| ?60-89 ?| ?Stage two ?| ? Decreased GFR ? + --+ --+ ------+| ?30-59 ?| ?Stage three ?| ? Stage three ? + --+ --+ ------+| ?15-29 ?| ?Stage four ? | ? Stage four ?+ ---+ ---+ -------+| ?<15 (or dialysis) ? ?| ?Stage five ? | ? Stage five ?+ ---+ ---+ -------+ *Each stage assumes the associated GFR level has been in effect for at least three months. ?Stages 1 to 5, with or without kidney disease, indicate chronic kidney disease. Notes: Determination of stages one and two (with eGFR >59mL/min/1.73 m2) requires estimation of kidney damage for at least three months as defined by structural or functional abnormalities of the kidney, manifested by either:Pathological abnormalities or Markers of kidney damage (including abnormalities in the composition of the blood or urine or abnormalities in imaging tests). Lab Interpretation Abnormal (test code = 92229-1) [facility], [id number] 03:28:20 Test Item Value Reference Range Interpretation Comments LIPASE (test code = 2205222065) 214 U/L 0-220 Lab Interpretation (test code = Normal 53983-6) [facility]PTT2022-05-07 03:08:59 Test Item Value Reference Range Interpretation Comments APTT Patient (test See_Comment [Automat ed code = 3173-2) message] The system which generated this result transmitted reference range : 23 - 38 Seconds . The reference range was not used to interpr et this result as normal/abnormal . FRANCISCO (test code = FRANCISCO) The [facility] patient population mean normal value for aPTT is 30 seconds. Lab Interpretation Normal (test code = 17629-6) [facility] AmericaPROTHROMBIN TIME / [id number] 03:06:58 Test Item Value Reference Range Interpretation Comments PROTIME PATIENT (test See_Comment [Auto mated message] code = 5964-2) The system wh ich generated this result transmitted ref erence range: 12.0 - 1 4.7 Seconds. The re ference range was not u sed to interpret this result as normal/abnor mal. INR (test code = 6301-6) Nor mal INR <1.1; Warfarin Therap eutic range 2.0 to 3. 0 or 2.5 to 3.5, dep ending upon the indica tions. Lab Interpretation (test Normal code = 23183-3) [facility] America[facility] WITH [id number] 02:39:16 Test Item Value Reference Range Interpretation Comments WBC (test code = See_Comment [Automated 6690-2) message] The sy stem which generated this result transmitted reference range : 4.30 - 11.10 10*3/?L. The reference range was not used to interpret this result as normal/abnormal . RBC (test code = See_Comment H [Automated 789-8) message] The sy stem which generated this result transmitted reference range : 3.93 - 5.25 10*6/?L. The reference range was not used to interpret this result as normal/abnormal . HGB (test code = 13.8 g/dL 11.6-15.0 718-7) HCT (test code = 42.7 % 35.7-45.2 4544-3) MCV (test code = 80.9 fL 80.6-95.5 787-2) MCH (test code = 26.1 pg 25.9-32.8 785-6) MCHC (test code = 32.3 g/dL 31.6-35.1 786-4) RDW-SD (test code = 37.9 fL 39.0-49.9 L 09485-9) RDW-CV (test code = 13.0 % 12.0-15.5 788-0) PLT (test code = See_Comment [Automated 777-3) message] The sy stem which generated this result transmitted reference range : 166 - 358 10*3/ ?L. The reference r nikkie was not used to interpret this result as normal/abnormal . MPV (test code = 12.6 fL 9.5-12.9 92509-0) NRBC/100 WBC (test See_Comment [Automat ed code = 3221807742) message] The system which generated this result transmitted reference range : 0.0 - 10.0 /100 WBCs. The refer ence range was not u sed to interpret th is result as normal/abnormal . NRBC x10^3 (test code <0.01 See_Comment [Auto mated = 2582352826) message] The s ystem which generated this result transmitted reference range : 10*3/?L. The reference range was not used to interpret this result as normal/abnormal . GRAN MAT (NEUT) % 61.9 % (test code = 770-8) IMM GRAN % (test code 0.30 % = 9846779707) LYMPH % (test code = 31.1 % 736-9) MONO % (test code = 5.6 % 5905-5) EOS % (test code = 0.8 % 713-8) BASO % (test code = 0.3 % 706-2) GRAN MAT x10^3(ANC) 6.38 10*3/uL 1.88-7.09 (test code = 9626808977) IMM GRAN x10^3 (test 0.03 10*3/uL 0.00-0.06 code = 9695539738) LYMPH x10^3 (test code 3.21 10*3/uL 1.32-3.29 = 731-0) MONO x10^3 (test code 0.58 10*3/uL 0.33-0.92 = 742-7) EOS x10^3 (test code = 0.08 10*3/uL 0.03-0.39 711-2) BASO x10^3 (test code 0.03 10*3/uL 0.01-0.07 = 704-7) Lab Interpretation Abnormal (test code = 25628-5) [facility]"
[2022-11-03] MEDS ORDERED: LIDOCAINE HCL JELLY 2% 6 ML SYRINGE TOP ONE (16:30)
--- NOTE | 2022-11-03 18:13 | EDPHYS ---
Physician Documentation [facility] Name: Anna Scott Age: 22 yrs Sex: Female : 2000 Arrival Date: 11/03/2022 Time: 15:00 Bed Treatment Private MD: ED Physician Rolan Caicedo HPI: 11/03 18:08 This 22 yrs old Black Female presents to ER via Ambulatory with complaints of thumb snw infection. 18:08 Onset: The symptoms/episode began/occurred acutely. The patient has experienced a snw previous episode. The patient has not recently seen a physician. Historical: - Allergies: 15:08 No Known Allergies; ll1 - PMHx: 15:08 diabetes mellitus; ll1 - PSHx: 15:08 None; ll1 - Immunization history:: Client reports having NOT received the Covid vaccine. - Social history:: Smoking status: Patient denies any tobacco usage or history of. ROS: 16:18 Constitutional: Negative for fever, chills, and weight loss, Eyes: Negative for injury, snw pain, redness, and discharge, ENT: Negative for injury, pain, and discharge, Neck: Negative for injury, pain, and swelling, Cardiovascular: Negative for chest pain, palpitations, and edema, Respiratory: Negative for shortness of breath, cough, wheezing, and pleuritic chest pain, Abdomen/GI: Negative for abdominal pain, nausea, vomiting, diarrhea, and constipation, Back: Negative for injury and pain, : Negative for injury, bleeding, discharge, and swelling, MS/Extremity: Negative for injury and deformity, Neuro: Negative for headache, weakness, numbness, tingling, and seizure, Psych: Negative for depression, anxiety, suicide ideation, homicidal ideation, and hallucinations. 16:18 Skin: Positive for swelling, of the right thumbnail. Exam: 16:14 Constitutional: This is a well developed, well nourished patient who is awake, alert, snw and in no acute distress. Head/Face: Normocephalic, atraumatic. Eyes: Pupils equal round and reactive to light, extra-ocular motions intact. Lids and lashes normal. Conjunctiva and sclera are non-icteric and not injected. Cornea within normal limits. Periorbital areas with no swelling, redness, or edema. ENT: Nares patent. No nasal discharge, no septal abnormalities noted. Tympanic membranes are normal and external auditory canals are clear. Oropharynx with no redness, swelling, or masses, exudates, or evidence of obstruction, uvula midline. Mucous membranes moist. Neck: Trachea midline, no thyromegaly or masses palpated, and no cervical lymphadenopathy. Supple, full range of motion without nuchal rigidity, or vertebral point tenderness. No Meningismus. Chest/axilla: Normal chest wall appearance and motion. Nontender with no deformity. No lesions are appreciated. Cardiovascular: Regular rate and rhythm with a normal S1 and S2. No gallops, murmurs, or rubs. Normal PMI, no JVD. No pulse deficits. Respiratory: Lungs have equal breath sounds bilaterally, clear to auscultation and percussion. No rales, rhonchi or wheezes noted. No increased work of breathing, no retractions or nasal flaring. Abdomen/GI: Soft, non-tender, with normal bowel sounds. No distension or tympany. No guarding or rebound. No evidence of tenderness throughout. Back: No spinal tenderness. No costovertebral tenderness. Full range of motion. MS/ Extremity: Pulses equal, no cyanosis. Neurovascular intact. Full, normal range of motion. Neuro: Awake and alert, GCS 15, oriented to person, place, time, and situation. Cranial nerves II-XII grossly intact. Motor strength 5/5 in all extremities. Sensory grossly intact. Cerebellar exam normal. Normal gait. Psych: Awake, alert, with orientation to person, place and time. Behavior, mood, and affect are within normal limits. 16:14 Musculoskeletal/extremity: Extremities: all appear grossly normal, with no appreciated pain with palpation, ROM: no acute changes, Circulation is intact in all extremities. 16:14 Skin: Appearance: normal except for affected area, injury, paronychia to right thumb. Vital Signs: 15:09 BP 135 / 86; Pulse 91; Resp 16; Temp 97.9; Pulse Ox 98% ; Weight 84.82 kg; Height 5 ft. ll1 0 in. ; Pain 7/10; 15:09 Body Mass Index 36.52 (84.82 kg, 152.4 cm) ll1 15:09 Pain Scale: Adult ll1 Procedures: 20:13 I \T\ D: Incision and drainage was performed for an abscess of the right Prepped with snw Betadine, Anesthetized with lido jelly. Incised with needle. Drained moderate amount purulent fluid. Abscess cavity explored. Dressing: bandaid the patient tolerated the procedure well. MDM: 15:12 Patient medically screened. angelina 18:12 Differential diagnosis: bacterial infection, paronychia, ingrown nail. Data reviewed: snw vital signs, nurses notes. Counseling: I had a detailed discussion with the patient and/or guardian regarding: the historical points, exam findings, and any diagnostic results supporting the discharge/admit diagnosis, the need for outpatient follow up, for definitive care, to return to the emergency department if symptoms worsen or persist or if there are any questions or concerns that arise at home. Response to treatment: the patient's symptoms have mildly improved after treatment. Special discussion: Based on the history and exam findings, there is no indication for further emergent testing or inpatient evaluation. I discussed with the patient/guardian the need to see the primary care provider for further evaluation of the symptoms. Administered Medications: 16:23 Drug: Lidocaine Mucous Membrane Gel 2 % 1 ea Volume: 15 ml; Route: Mucous Membrane; cm10 18:21 Not Given (Pt doesn't have a ridee): traMADol PO 50 mg PO once cm10 18:26 Drug: Boostrix Tdap IM 0.5 ml Route: IM; Site: right deltoid; cm10 18:26 Drug: Doxycycline PO 100 mg Route: PO; cm10 Disposition Summary: 11/03/22 18:12 Discharge Ordered Location: Home snw Condition: Stable snw Diagnosis - Paronychia snw Followup: snw - With: Emergency Department - When: As needed - Reason: Worsening of condition Followup: snw - With: Private Physician - When: 5 - 6 days - Reason: Recheck today's complaints, Continuance of care, Re-evaluation by your physician Discharge Instructions: - Discharge Summary Sheet snw - Paronychia snw Forms: - Medication Reconciliation Form snw - Thank You Letter snw - Antibiotic Education snw - Prescription Opioid Use snw Prescriptions: - Mobic 7.5 mg Oral Tablet - take 1 tablet by ORAL route once daily take with food; 20 tablet; Refills: 0, snw Product Selection Permitted - Doxycycline Hyclate 100 mg Oral Tablet - take 1 tablet by ORAL route every 12 hours; 20 tablet; Refills: 0, Product snw Selection Permitted Signatures: Rolan Caicedo MD MD cha Waters, Shelly, CHRISTIN-C RAMP ATTENDANT-Shruthi Duran, RN RN ll1 Cayla Delarosa RN RN cm10
--- NOTE | 2022-11-03 18:13 | ER ---
Nurse's Notes [facility] Name: Anna Scott Age: 22 yrs Sex: Female : 2000 Arrival Date: 11/03/2022 Time: 15:00 Bed Treatment Private MD: Diagnosis: Paronychia Presentation: 11/03 15:09 Chief complaint: Patient states: R hand thumb pain, swelling beside nailbed for 3 days. ll1 No fever. Coronavirus screen: Vaccine status: Patient reports being unvaccinated. Client denies travel out of the [place] in the last 14 days. At this time, the client does not indicate any symptoms associated with coronavirus-19. Ebola Screen: Patient denies travel to an Ebola-affected area in the 21 days before illness onset. Initial Sepsis Screen: Does the patient meet any 2 criteria? No. Patient's initial sepsis screen is negative. Does the patient have a suspected source of infection? Yes: Skin breakdown/wound. Risk Assessment: Do you want to hurt yourself or someone else? Patient reports no desire to harm self or others. Onset of symptoms was November 01, 2022. 15:09 Method Of Arrival: Ambulatory ll1 15:09 Acuity: KATHLEEN 4 ll1 Triage Assessment: 15:10 General: Appears uncomfortable, Behavior is calm, cooperative, appropriate for age. ll1 Pain: Complains of pain in left hand Pain currently is 7 out of 10 on a pain scale. Quality of pain is described as aching. Derm: Abscess located on L thumb nail is < dime sized. Historical: - Allergies: 15:08 No Known Allergies; ll1 - PMHx: 15:08 diabetes mellitus; ll1 - PSHx: 15:08 None; ll1 - Immunization history:: Client reports having NOT received the Covid vaccine. - Social history:: Smoking status: Patient denies any tobacco usage or history of. Screenin:30 [facility] ED Fall Risk Assessment (Adult) History of falling in the last 3 months, nj1 including since admission No falls in past 3 months (0 pts) Confusion or Disorientation No (0 pts) Intoxicated or Sedated No (0 pts) Impaired Gait No (0 pts) Mobility Assist Device Used No (0 pt) Altered Elimination No (0 pt) Score/Fall Risk Level 0 - 2 = Low Risk Oriented to surroundings, Maintained a safe environment, Hourly rounding (assess needs \T\ fall precautionary measures) done. Abuse screen: Denies threats or abuse. Denies injuries from another. Nutritional screening: No deficits noted. Tuberculosis screening: No symptoms or risk factors identified. Assessment: 15:29 General: Appears in no apparent distress. comfortable, Behavior is calm, cooperative, nj1 appropriate for age. Pain: Complains of pain in right thumbnail Pain currently is 7 out of 10 on a pain scale. Neuro: Level of Consciousness is awake, alert, obeys commands, Oriented to person, place, time, situation. Cardiovascular: Patient's skin is warm and dry. Respiratory: Airway is patent Respiratory effort is even, unlabored. Vital Signs: 15:09 BP 135 / 86; Pulse 91; Resp 16; Temp 97.9; Pulse Ox 98% ; Weight 84.82 kg; Height 5 ft. ll1 0 in. ; Pain 7/10; 15:09 Body Mass Index 36.52 (84.82 kg, 152.4 cm) ll1 15:09 Pain Scale: Adult ll1 ED Course: 15:01 Patient arrived in ED. am2 15:02 Ariella Jiménez F[facility]-C [facility]. snw 15:02 Rolan Caicedo MD is Attending Physician. snw 15:08 Arm band placed on. ll1 15:10 Triage completed. ll1 15:12 Abby Macario, JAMES is Primary Nurse. nj1 15:30 Patient has correct armband on for positive identification. Bed in low position. Call nj light in reach. 18:26 No provider procedures requiring assistance completed. Patient did not have IV access cm10 during this emergency room visit. Administered Medications: 16:23 Drug: Lidocaine Mucous Membrane Gel 2 % 1 ea Volume: 15 ml; Route: Mucous Membrane; cm10 18:21 Not Given (Pt doesn't have a ridee): traMADol PO 50 mg PO once cm10 18:26 Drug: Boostrix Tdap IM 0.5 ml Route: IM; Site: right deltoid; cm10 18:26 Drug: Doxycycline PO 100 mg Route: PO; cm10 Medication: 18:26 Vaccine Information Statement (VIS) provided today. Questions and/or concerns cm10 addressed. VIS edition date: December 15, 2020. Outcome: 18:12 Discharge ordered by MD. sandra 18:26 Discharged to home ambulatory. cm10 18:26 Condition: good 18:26 Discharge instructions given to patient, Instructed on discharge instructions, follow up and referral plans. Demonstrated understanding of instructions, follow-up care, medications, Prescriptions given X 2. 18:27 Patient left the ED. cm10 Signatures: Ariella Jiménez, OFFICE ELECTRICIAN-C OFFICE ELECTRICIAN-Csnw Kelsy Robertson am2 Shruthi Messina RN RN ll1 Abby Macario RN RN nj1 Cayla Delarosa RN RN cm10
[2022-11-03] MEDS ORDERED: TDAP (DIPHTH,PERTUSS(ACELL),TET VAC) 0.5 ML VIAL IMVAC ONE (18:26)
[2022-11-03] MEDS ORDERED: DOXYCYCLINE 100 MG CAP PO ONE (18:26)
== END 2022-11-03 18:27 | disposition home or self-care (01) ==
LOC: ER 15:00
PROC: 0H9QX0Z Drainage of Finger Nail with Drainage Device, External Approach (ICD-10-PCS; principal; 2022-11-03)
DX: L03.011 Cellulitis of right finger (principal); E11.9 Type 2 diabetes mellitus without complications
CPT/HCPCS: 96372; 99284